=== PATIENT | female | born 1980 ===

== ENCOUNTER 2017-08-23 10:13 | Inpatient (IN) | payer MEDICAID, OTHER ==
[2017-08-23 11:02] VITALS: BMI 28.7
[2017-08-23] MEDS ORDERED: Lactated Ringer's 1,000 ML IV ONE (11:17)
[2017-08-23] MEDS ORDERED: Lactated Ringer's 1,000 ML IV SCH (11:30)
[2017-08-23] MEDS ORDERED: Oxytocin 30 units/LR 500ML 30 U/500 ML BAG IV ONE ×2 (11:45→15:02)
[2017-08-23 12:02] LABS: BASO % 0.1 % (0.0-2.0); HEMOGLOBIN 11.5 g/dL (12.0-16.0); LYMPH # 0.8 K/uL (1.0-4.3); LYMPH % 3.6 % (20.0-40.0); MEAN CELL VOLUME 86.2 fl (81.0-99.0); MEAN CORPUSCULAR HEMOGLOBIN 29.2 pg (27.0-31.0); MEAN CORPUSCULAR HGB CONC 33.8 g/dL (33.0-37.0); MEAN PLATELET VOLUME 8.7 fl (7.2-11.7); MONO # 0.3 K/uL (0.0-0.8); MONO % 1.5 % (0.0-10.0); NEUT # 20.3 K/uL (1.8-7.0); NEUT % 94.8 % (50.0-75.0); PLATELET COUNT 243 K/uL (130-400); RBC 3.94 Mil/uL (3.80-5.20); RED CELL DISTRIBUTION WIDTH 14.5 % (11.5-14.5); WHITE BLOOD COUNT 21.4 K/uL (4.8-10.8)
[2017-08-23] MEDS ORDERED: Fentanyl/Bupivacaine HCl 250 ML EPI ONE (12:16)
[2017-08-23 13:03] LABS: BANDS 1 % (0-2); HYPERSEGMENTATION PRESENT; HYPOCHROMIC SLIGHT; LYMPHOCYTE 4 % (20-50); MONOCYTE 3 % (0-10); NEUTROPHIL 92 % (42-75); PLATELET ESTIMATE NORMAL (NORMAL); TOTAL CELLS COUNTED 100
--- NOTE | 2017-08-23 15:12 | OBADHP ---
Datetime: 08/23/2017 12:59 Admit Comment, IP Provider: Patient is a @ 38.4 wks brought by ambulance, was found to have ble eding/pain and vaginal discharge in clinic today and was unable to be examined. Patient reports +FM, no problems, no medical problems,no surgical problems. VE=9/100/0, bulging membrances HMA=352 mod jacky, +accels, no decels TOCO = ctxing q 4 mins A/P 1. patient in labor, admitted to L_D, start IVF, CBC, type and screen 2. CEFM and TOCO 3. Patient offered an epidural for pain Pelvic Type - PN: Adequate Extremities - PN: Normal Abdomen - PN: Normal Back - PN: Normal Breast - PN: Normal Lungs - PN: Normal Heart - PN: Normal Thyroid - PN: Normal Neurologic - PN: Normal HEENT - PN: Normal General - PN: Normal FHR - Baseline A Provider: 120 Contraction Comments Provider: q 4 mins Vital Signs Provider: Reviewed; Within Normal Limits IP Chief Complaint: Uterine contractions NICHD Variability Prov Fetus A: Moderate 6-25bpm NICHD Accel Fetus A IP Provider: [id number] NICHD Decel Fetus A IP Provider: None Dilatation, Provider: 9 Effacement, Provider: 100 Station, Provider: 0 Genitourinary Exam: Normal DTRs - PN: Normal EGA AdmitDate IP: 38.4 IP Adm Impression: Term, intrauterine IP Admit Plan: Admit to unit; Initiate labor protocol
[2017-08-23] MEDS ORDERED: Benzocaine/Menthol SPRAY TOP PRN (20:34)
[2017-08-23] MEDS ORDERED: Oxycodone/Acetaminophen 5/325 mg Tab PO PRN (20:34)
--- NOTE | 2017-08-23 21:53 | OBDS ---
DELIVERY PERSONNEL Delivery Doctor: Kassi Sky MD Outdoor Advertising Leasing Agent: Solange Torres RN Anesthesiologist: Isaiah Steiner MD MATERNAL INFORMATION Delivery Anesthesia: Local; Epidural Medications in Delivery: Pitocin Estimated Blood Loss (ml): 50 Placenta Cultured: No Maternal Complications: Prolonged Second Stage > 2 Hrs Provider Comments: of live female over intact perineum in SILVIA presentation followed by caden menezes and rest of , loose nuchal cord x 1, 7lbs 2oz, 9/9, mouth and nose suctioned, cord cla mped and cut, cord blood obtained, placenta delivered, fundus firm, 2nd degree laceration repaired wi th 2-0 vicryl rapide, EBL=50mL, pt tolerated procedure well LABOR SUMMARY EDC: 09/02/2017 00:00 No. Babies in Womb: 0 Attempted: No Labor Anesthesia: Epidural LABOR INFORMATION Reason for Induction: Not Applicable Onset of Labor: 08/22/2017 21:00 Complete Dilatation: 08/23/2017 13:45 Oxytocin: Augmentation Group B Beta Strep: Negative Antibiotics # of Doses: 0 Antibiotics Time of Last Dose: n/a Steroids Given: None Reason Steroids Not Administered: Not Applicable MEMBRANES Membranes Rupture Method: Artificial Rupture of Membranes: 08/23/2017 14:30 Length of Rupture (hrs): 5.57 Amniotic Fluid Color: Light Meconium Amniotic Fluid Amount: Moderate Amniotic Fluid Odor: Normal STAGES OF LABOR Stage 1 hrs: 16 Stage 1 min: 45 Stage 2 hrs: 6 Stage 2 min: 19 Stage 3 hrs: 0 Stage 3 min: 2 Total Time in Labor hrs: 23 Total Time in Labor min: 6 VAGINAL DELIVERY Episiotomy: None Laceration Extension: Second Degree Laceration Type: Vaginal Laceration Repair: Yes Initial Vag Sponge Count: 15 Final Vag Sponge Count: 15 Initial Vag Sharps Count: 3 Final Vag Sharps Count: 3 Sponge Count Correct: Yes Sharps Count Correct: Yes Count Comment: count correct with Dr Sky BABY A INFORMATION Delivery Date/Time: 08/23/2017 20:04 Method of Delivery: Vaginal Born in Route : No : N/A Forceps: N/A Vacuum Extraction: N/A Shoulder Dystocia : No SHOULDER DYSTOCIA BABY A Infant Delivery Date/Time: 08/23/2017 20:04 PRESENTATION/POSITION BABY A Presentation: Cephalic PLACENTA INFORMATION BABY A Placenta Delivery Time : 08/23/2017 20:06 Placenta Method of Delivery: Spontaneous Placenta Status: Delivered SCORES BABY A Heart Rate 1 min: >100 bpm Resp Effort 1 min: Good Cry Reflex Irritability 1 min: Cough or Sneeze or Pulls Away Muscle Tone 1 min: Active Motion Color 1 min: Body Social Circle, Extremities Blue Resuscitation Effort 1 min: Tactile Stimulation SCORE 1 MIN: 9 Heart Rate 5 min: >100 bpm Resp Effort 5 min: Good Cry Reflex Irritability 5 min: Cough or Sneeze or Pulls Away Muscle Tone 5 min: Active Motion Color 5 min: Body Social Circle, Extremities Blue Resuscitation Effort 5 min: N/A SCORE 5 MIN: 9 INFANT INFORMATION BABY A Gestational Age at Delivery: 38.4 Gestational Status: Term Outcome : Liveborn Condition : Stable Sex: Female IDENTIFICATION/MEDS BABY A ID Band Number: [id number] ID Band Location: Left Leg; Left Arm WEIGHT/LENGTH BABY A Infant Birthweight (gms): 3245 Weight (lb): 7 Infant Weight (oz): 2 CORD INFORMATION BABY A No. Cord Vessels: 3 Nuchal Cord : Around Neck x1, Loose Cord Blood Taken: Yes Suction: None
[2017-08-24] MEDS ORDERED: Benzocaine/Menthol SPRAY TOP PRN (00:55)
[2017-08-24] MEDS: Oxycodone/Acetaminophen 5/325 mg Tab PO PRN ×2 (05:30→16:00)
[2017-08-24 06:44] LABS: BASO % 0.1 % (0.0-2.0); EOS % 0.1 % (0.0-4.0); HEMOGLOBIN 9.8 g/dL (12.0-16.0); LYMPH # 1.7 K/uL (1.0-4.3); LYMPH % 10.3 % (20.0-40.0); MEAN CORPUSCULAR HEMOGLOBIN 29.3 pg (27.0-31.0); MEAN CORPUSCULAR HGB CONC 33.6 g/dL (33.0-37.0); MEAN PLATELET VOLUME 8.4 fl (7.2-11.7); MONO # 0.7 K/uL (0.0-0.8); MONO % 4.2 % (0.0-10.0); NEUT % 85.3 % (50.0-75.0); RBC 3.33 Mil/uL (3.80-5.20); RED CELL DISTRIBUTION WIDTH 14.7 % (11.5-14.5); WHITE BLOOD COUNT 16.4 K/uL (4.8-10.8)
--- NOTE | 2017-08-24 09:46 | OBPPN ---
Datetime: 08/24/2017 08:50 PP Pain Prov: Within normal limits PP Nausea Prov: Denies PP Flatus Prov: Yes PP BM Prov: Yes PP Heart Prov: Normal PP Lungs Prov: Normal PP Abdomen/Uterus Prov: Normal PP Lochia Prov: Normal PP Impression Prov: Normal progression PP Plan Prov: Continue present management PP Progress Note Prov: 36 y/o s/p PPD1 08/23/2017 @20:04 had no complaints overnight. Lochia like menses, tolerating regular diet. + flatus _ BS. Patient denied any f/c/n/v/d, cp or sob A/P:36 y/o s/p PPD1 1. Breast feeding encouraged. 2. AMbulate as tolerated. 3. Ibuprofen 600mg PO PRN for mild/moderate pain. 4. Anticipated dc 08/25/2017 Case discussed with OB attending Erin Ho PGY-1 OB Hospitalist on-call...On rounds I saw and examiend this patinet Agree with note RUBA Vital Signs Provider PP: Reviewed; Within Normal Limits
--- NOTE | 2017-08-25 14:12 | OBPPN ---
Datetime: 08/25/2017 08:10 PP Pain Prov: Within normal limits PP Nausea Prov: Denies PP Flatus Prov: Yes PP BM Prov: No PP Heart Prov: Normal PP Abdomen/Uterus Prov: Normal PP Lochia Prov: Normal PP Extremities Prov: Normal PP Impression Prov: Normal progression PP Plan Prov: Discharge PP Progress Note Prov: 36 y/o PPD2 s/p was seen and examined at bedside this AM. Patient h ad no complaints overnight. Pain is well controlled with medication. with formula suppl ementation continued. She is ambulating and voiding well. +Flatus/+BM. Lochia is similar to menses v olume. Patient denies f/c/n/v/d, cp, sob, calf pain or dizziness. Uterus is firm _ fundus is at level of the umbilicus. Patient unsure of plan for contraception. VS: w/I normal limits GEN: well appearing female Cardio: S1S2, no murmurs Lungs: clear breath sounds, no wheeze Abdomen: BS+ EXT: calves nontender NEURO: AAOx3 A/P: 36 y/o s/p doing well on PPD2. 1. and ambulation encouraged. 2.Ibuprofen 600mg PRN for mild/mod pain _ 3.Discharge today 08/25/2017. Discussed with OBGYN attending Erin Ho PGY-1 Patient was seen with the resident I agree with the note Vital Signs Provider PP: Reviewed
--- NOTE | 2017-08-25 14:15 | OBDCSUM ---
Datetime: 08/25/2017 08:00 Discharged to, Provider: Home Follow up at, Provider: [facility] Disch Instr Activity: Normal activity Disch Instr Diet: Regular Discharge Instructions, Provider: Routine instructions given Discharge Diagnosis, Provider: Term Delivered Discharge Time: 08/25/2017 12:00 Follow up in weeks, Provider: 6 Weeks Disch Referrals: None Contraception discussed, Prov: Yes Disch Activity Restrictions: No sexual activity; Nothing in vagina - Marcellus, tampons, douche Discharge Comment, Provider: Patient cleared for discharge Contraception after Delivery: Undecided
[2017-08-27 11:32] VITALS: BP 114/72; PULSE 84; RESP 20; TEMP 98.2; O2SAT 100
== END 2017-08-25 16:35 | disposition home or self-care (01) | DRG 373 ==
LOC: H.EROB2 10:13 → H.L&D 11:17 → H.OB/GYN 22:00
PROVIDERS: ADMIT Obstetrics & Gynecology; ATTEND Obstetrics & Gynecology
PROC: 10E0XZZ Delivery of Products of Conception, External Approach (ICD-10-PCS; principal; 2017-08-23)
PROC: 0KQM0ZZ Repair Perineum Muscle, Open Approach (ICD-10-PCS; 2017-08-23)
PROC: 10907ZC Drainage of Amniotic Fluid, Therapeutic from Products of Conception, Via Natural or Artificial Opening (ICD-10-PCS; 2017-08-23)
PROC: 4A1HXCZ Monitoring of Products of Conception, Cardiac Rate, External Approach (ICD-10-PCS; 2017-08-23)
DX: O69.81X0 Labor and delivery complicated by cord around neck, without compression, not applicable or unspecified (principal); O63.1 Prolonged second stage (of labor); O70.1 Second degree perineal laceration during delivery; Z3A.38 38 weeks gestation of pregnancy; Z37.0 Single live birth